=== PATIENT | female | born 1990 ===

== ENCOUNTER → 2023-01-03 15:20 | Outpatient (CLI) | payer OTHER, SELFPAY ==
--- NOTE | ~2023-01-03 | US_ITS ---
EXAMINATION: US transvaginal DATE: 01/03/2023 15:53 INDICATION: Right lower quadrant pain, history of ovarian cysts TECHNIQUE: Multiple endovaginal sonographic images of the pelvis were obtained. COMPARISON: None. FINDINGS: The uterus measures 7.8 x 4.0 x 5.4 cm. The endometrial complex measures 3 mm. The right ov sandra measures 1.4 x 1.3 x 1.5 cm. The left ovary measures 3.5 x 1.9 x 2.2 cm. There is a 2.0 cm cyst w ith internal echoes of the left ovary. There is normal vascular flow in the ovaries. There is no free fluid in the pelvis. IMPRESSION: 1. 2 cm complicated cyst of the left ovary. Reviewed, dictated and finalized at location F.
== END ==
PROVIDERS: Visit Provider Nurse Practitioner Family
DX: N83.202 Unspecified ovarian cyst, left side (principal); N94.10 Unspecified dyspareunia; Z87.42 Personal history of other diseases of the female genital tract
CPT/HCPCS: 76830